=== PATIENT | male | born 1955 | race Caucasian/White ===

== ENCOUNTER 2017-04-04 07:03 | Emergency (ER) | payer SELFPAY ==
[2017-04-04 07:15] VITALS: TEMP 97.8; BMI 25.0
[2017-04-04] MEDS ORDERED: CYCLOBENZAPRINE HCL 10 MG TABLET (FP) PO ONE (07:56)
[2017-04-04] MEDS ORDERED: OXYCODONE/APAP 5/325MG COMBO TABLET PO ONE (07:56)
[2017-04-04] MEDS ORDERED: OXYCODONE/APAP 5/325MG COMBO TABLET ONE (08:06)
[2017-04-04] MEDS ORDERED: CYCLOBENZAPRINE HCL 10 MG TABLET (FP) ONE (08:06)
--- NOTE | 2017-04-04 08:57 | PDOC ---
History of Present Illness - General Chief Complaint: Back Pain Stated Complaint: LOWER BACK AND LEG PAIN Time Seen by Provider: 04/04/17 07:42 History Source: Patient Exam Limitations: No Limitations - History of Present Illness Initial Comments: 04/04/17 08:59 61 yr old male with c/o low back pain x 3 weeks. Patient states was seen in his country of [facility] where he was placed on medication similar to lyrica and Neurontin. Patient states had an x-ray of his back which showed herniation and would likely need surgery but since patient was coming to [facility] on a visa he decided take the medication and postpone it. Patient states the medication is not relieved his pain and states the pain to his lower back is an aching pressure with radiation down the posterior aspect of bilateral legs which he describes a tingling sharp pain. Patient denies saddle anesthesia, incontinence , difficulty ambulating but states pain is worsened with standing and ambulation. 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 Patient has no other complaints at this time. Occurred: reports: other (3 weeks) Severity: reports: moderate Pain Location: reports: lower extremity Method of Injury: Yes: unknown Loss of Consciousness: no loss of consciousness Associated Symptoms (Fall): denies symptoms Past History - Past Medical History Allergies/Adverse Reactions: Allergies Allergy/AdvReac Type Severity Reaction Status Date / Time No Known Allergies Allergy Verified 04/04/17 07:12 Home Medications: Ambulatory Orders NK [No Known Home Medication] 04/04/17 Other medical history: denies - Psycho/Social/Smoking Cessation Hx Suicidal Ideation: No Smoking History: Never smoked Information on smoking cessation initiated: No Hx Alcohol Use: No Drug/Substance Use Hx: No Substance Use Type: None Patient Lives Alone: No Lives with/in: spouse/SO Review of Systems - Review of Systems Able to Perform ROS?: Yes Constitutional: No: Symptoms Reported ABD/GI: No: Symptoms Reported : No: Symptoms Reported Musculoskeletal: Yes: Back Pain, Muscle Pain (aure buttocks and ). No: Joint Swelling, Muscle Weakness, Joint Stiffness Integumentary: No: Symptoms Reported Neurological: Yes: Symptoms reported, Tingling. No: Numbness, Paresthesia, Weakness Hematologic/Lymphatic: No: Symptoms Reported *Physical Exam - Vital Signs Last Vital Signs Temp Pulse Resp BP Pulse Ox 97.8 F 70 18 130/80 98 04/04/17 07:10 04/04/17 07:10 04/04/17 07:10 04/04/17 07:10 04/04/17 07:10 - Physical Exam General Appearance: Yes: Nourished, Appropriately Dressed. No: Apparent Distress Neck: positive: Supple. negative: Tender, Decreased range of motion Cardiovascular: positive: Regular Rhythm, Regular Rate. negative: Murmur Gastrointestinal/Abdominal: positive: Soft. negative: Tenderness Musculoskeletal: positive: Vertebral Tenderness (L5 tenderness), Other ( bilateral buttock over the sciatic nerve). negative: CVA Tenderness Extremity: positive: Normal Capillary Refill. negative: Pedal Edema Integumentary: positive: Normal Color, Warm, Moist Neurologic: positive: Normal Mood/Affect, Motor Strength 5/5. negative: Sensory Deficit ED Treatment Course - RADIOLOGY Radiology Studies Ordered: Category Date Time Status SPINE-LUMBAR ONLY [RAD] Stat Radiology 04/04/17 07:56 Ordered - Medications Given in the ED: ED Medications Discontinued Medications Generic Name Dose Route Start Last Admin Trade Name Freq PRN Reason Stop Dose Admin Cyclobenzaprine HCl 5 mg 04/04/17 07:56 04/04/17 08:22 Flexeril - PO 04/04/17 07:57 5 mg ONCE ONE Administration Oxycodone/Acetaminophen 1 combo 04/04/17 07:56 04/04/17 08:22 Percocet 5/325 - PO 04/04/17 07:57 1 combo ONCE ONE Administration Medical Decision Making - Medical Decision Making 04/04/17 09:07 [place] point tenderness over L5 with recent diagnosis of herniation. Patient states is on medications similar to liver, and Neurontin that was prescribed in [facility] with minimal relief. Patient will be ordered for medication along with the lumbar spine x-ray 04/04/17 10:16 Patient states feeling better after receiving the medication. Patient will be discharged home with referral to Dr. Brian Sy and medication. X-ray showed no acute findings *DC/Admit/Observation/Transfer Diagnosis at time of Disposition: Back pain with sciatica - Discharge Dispostion Disposition: HOME Condition at time of disposition: Improved - Referrals Referrals: Michele Sy MD [Staff Physician] - - Patient Instructions Printed Discharge Instructions: DI for Back Pain With Sciatica Additional Instructions: Please take medication as needed for discomfort and please follow-up with referred physician.
[2017-04-04 10:43] VITALS: BP 129/70; PULSE 73
== END 2017-04-04 10:44 | disposition home or self-care (01) ==
LOC: JER 07:03
DX: M54.42 Lumbago with sciatica, left side (principal); M54.41 Lumbago with sciatica, right side
CPT/HCPCS: 72100-TC; 99282-25